=== PATIENT | female | born 2000 | race Caucasian/White ===

== ENCOUNTER 2023-07-24 11:15 | Outpatient (CLI) | payer OTHER, SELFPAY ==
[2023-07-24 13:02] LABS: HCG,Quantitative 6651 mIU/ml (0-5.42)
[2023-07-25 08:17] LABS: Progesterone 18.7 ng/mL (.)
== END 2023-07-24 23:59 ==
LOC: LAB 11:18
PROVIDERS: PCP Internal Medicine Adolescent Medicine; Visit Provider Obstetrics & Gynecology
DX: Z32.00 Encounter for pregnancy test, result unknown (principal)
CPT/HCPCS: 36415; 84144; 84702

== ENCOUNTER 2023-08-10 19:13 | Outpatient (CLI) | payer OTHER, SELFPAY ==
[2023-08-14 00:09] LABS: Neisseria gonorrhoeae, NAA Negative (Negative)
== END 2023-08-10 23:59 | disposition home or self-care (01) ==
LOC: LAB.DROPOF 19:14
PROVIDERS: PCP Obstetrics & Gynecology; Visit Provider Obstetrics & Gynecology
DX: O26.891 Other specified pregnancy related conditions, first trimester (principal); Z3A.01 Less than 8 weeks gestation of pregnancy
CPT/HCPCS: 87086; 87491; 87591

== ENCOUNTER 2023-08-28 16:22 | Outpatient (CLI) | payer OTHER, SELFPAY ==
[2023-08-28 16:53] LABS: Basophils # 0.1 K/mm3 (0-0.2); Basophils % 0.7 % (0.1-2.0); Eosinophils # 0.2 K/mm3 (0.0-0.4); Eosinophils % 1.6 % (0.1-12.0); Hematocrit 36.1 % (37.0-47.0); Hemoglobin 11.9 g/dL (12.2-16.2); Lymphocytes # 1.8 K/mm3 (0.7-4.5); Lymphocytes % 19.3 % (10-50); Mean Corpuscular HGB Conc 32.9 g/dL (31.8-35.4); Mean Corpuscular Hemoglobin 29.6 pg (27.0-31.2); Mean Platelet Volume 7.8 fl (7.4-10.4); Monocytes # 0.4 K/mm3 (0.1-1.0); Monocytes % 4.3 % (1.7-9.3); Neutrophils # 6.9 K/mm3 (1.8-7.8); Neutrophils % 74.1 % (37.0-80.0); Platelet Count 314 K/mm3 (142-424); Red Blood Count 4.01 M/mm3 (4.20-5.40); Red Cell Distribution Width 13.6 % (11.5-17.5); White Blood Count 9.3 K/mm3 (4.8-10.8)
[2023-08-30 13:43] LABS: Rapid Plasma Reagin Ab Titer Non Reactive titer (NonRea<1:1)
[2023-09-01 09:06] LABS: HIV Screen 4th Generation wRfx Non Reactive
[2023-09-01 09:07] LABS: Hepatitis B Surface Antigen Negative; Hepatitis C Antibody Non Reactive; Rubella Antibodies, IgG 2.03
== END 2023-08-28 23:59 | disposition home or self-care (01) ==
LOC: LAB 16:23
PROVIDERS: PCP Internal Medicine Adolescent Medicine; Visit Provider Obstetrics & Gynecology
DX: O26.891 Other specified pregnancy related conditions, first trimester (principal); Z3A.11 11 weeks gestation of pregnancy
CPT/HCPCS: 36415; 85025; 86593; 86703; 86762; 86850; 87340; 87380; G0432

== ENCOUNTER 2023-11-01 13:17 | Outpatient (CLI) | payer OTHER, SELFPAY ==
--- NOTE | 2023-11-01 13:17 | US_ITS ---
PROCEDURE: US OB /MATERNAL DETAIL CLINICAL INDICATION: US OB Complete-20 wk+ Anatomy Scan COMPARISON: No exams were available for comparison FINDINGS: Transabdominal sonographic images of the pelvis were obtained. From her established due date she is 19 weeks 3 days. Single viable intrauterine gestation. Cephalic position. Placenta: Anteriorplacenta grade 1. There is an average amount of fluid. The cervix appears satisfactory. Closed and measuring 4.9 cm in length. Complete survey performed and was unremarkable on the submitted images as in PACS. No discrete anomalies identified on survey imaging by technologist. Active fetus. Three-vessel cord with satisfactory umbilical cord insertion. 4- chamber heart noted. Situs, aortic arch, LVOT, RVOT, three-vessel view appear normal. Survey of brain & ventricles Unremarkable. Cerebellum, thalamus, choroid plexus, cisterna magna appear normal. Face and neck survey unremarkable. Profile, nasion, lips and nose appeared normal. Diaphragm and chest views unremarkable. Abdomen: Both kidneys noted and unremarkable. Stomach and bladder noted and satisfactory. Spine: Survey of the spine satisfactory with no anomalies identified nor imaged. Cervical, thoracic, lower spine appear normal. The views were incomplete due to position. Both arms and legs noted. Amniotic Fluid: Adequate. MVP 4.36 cm. Measurements: Average ultrasound age 19weeks 3days. Estimated due date by ultrasound age 1103/24/2024. Estimated weight 292g BPD = 19weeks 1day HC = 19weeks 3days AC = 19weeks 6days FL = 19weeks 1day Growth Percentile= 45 Heart Rate = 146bpm Cerebellum = 19weeks 4days Humerus = 19weeks 3days HC/AC is 1.16 FL/BPD is 0.68 FL/AC is 0.2 IMPRESSION: 1. Viable fetus in the cephalic presentation with an anterior placenta grade 1. 2. The fluid is within normal limits. 3. Anatomical scan appears normal. 4. Spinal views were incomplete due to position and would suggest repeat views in 2-4 weeks. 5. biometry is consistent with a dates. Dictated by: Kehinde Powell MD 11/01/2023 14:14 Kehinde Powell MD in [place] 11/01/2023 14:14
== END 2023-11-01 23:59 | disposition home or self-care (01) ==
LOC: RAD 13:17
PROVIDERS: PCP Internal Medicine Adolescent Medicine; Visit Provider Obstetrics & Gynecology
DX: Z36.3 Encounter for antenatal screening for malformations (principal); Z14.1 Cystic fibrosis carrier; Z3A.19 19 weeks gestation of pregnancy
CPT/HCPCS: 76811

== ENCOUNTER 2023-11-15 15:45 | Outpatient (CLI) | payer OTHER, SELFPAY ==
--- NOTE | 2023-11-15 15:45 | US_ITS ---
PROCEDURE: US OB FOLLOW UP CLINICAL INDICATION: follow up anatomy scan to focus on the spine COMPARISON: US US OB /MATERNAL DETAIL from 11/01/2023 FINDINGS: Transabdominal sonographic images of the pelvis were obtained. The following parameters are obtained: From her established due date she is 21weeks 3days Viable fetus in the cephalic presentation with a right lateral placenta grade 1. The cervix measures 3.5 cm heart rate: 149bpm bpm. BPD: 22weeks 2days HC: 21weeks 6days AC: 22weeks 1day FL: 20weeks 6days HC/AC: 1.14 FL/BPD: 0.64 FL/AC: 0.2 Growth percentile: 51 Amniotic fluid: Appears normal. No obvious anomalies evident. Stomach, bladder, three-vessel cord, four chamber heart appear normal. spine: Cervical, thoracic and lower spine appear normal today. IMPRESSION: 1. Viable fetus in the cephalic presentation with a right lateral placenta grade 1. 2. The fluid appears normal in volume. 3. Limited anatomical scan appears normal. 4. Detailed scan of the spine today is normal. 5. biometry is consistent with the dates. Dictated by: Kehinde Powell MD 11/16/2023 08:59 Kehinde Powell MD in [place] 11/16/2023 08:59
== END 2023-11-15 23:59 | disposition home or self-care (01) ==
LOC: RAD 15:45
PROVIDERS: PCP Internal Medicine Adolescent Medicine; Visit Provider Obstetrics & Gynecology
DX: Z36.2 Encounter for other antenatal screening follow-up (principal); Z3A.21 21 weeks gestation of pregnancy
CPT/HCPCS: 76816

== ENCOUNTER 2023-12-27 13:44 | Outpatient (CLI) | payer OTHER, SELFPAY ==
[2023-12-27 14:09] LABS: Basophils # 0.1 K/mm3 (0-0.2); Basophils % 0.5 % (0.1-2.0); Eosinophils # 0.1 K/mm3 (0.0-0.4); Eosinophils % 0.5 % (0.1-12.0); Hematocrit 32.8 % (37.0-47.0); Hemoglobin 10.6 g/dL (12.2-16.2); Lymphocytes # 1.8 K/mm3 (0.7-4.5); Lymphocytes % 13.9 % (10-50); Mean Corpuscular HGB Conc 32.3 g/dL (31.8-35.4); Mean Corpuscular Volume 89.8 fl (81-99); Mean Platelet Volume 8.1 fl (7.4-10.4); Monocytes # 0.6 K/mm3 (0.1-1.0); Monocytes % 4.5 % (1.7-9.3); Neutrophils # 10.6 K/mm3 (1.8-7.8); Neutrophils % 80.5 % (37.0-80.0); Platelet Count 305 K/mm3 (142-424); Red Blood Count 3.65 M/mm3 (4.20-5.40); Red Cell Distribution Width 13.5 % (11.5-17.5); White Blood Count 13.2 K/mm3 (4.8-10.8)
[2023-12-27 14:19] LABS: Glucose,Fasting 82 mg/dl (74-100)
[2023-12-27 16:04] LABS: Glucose 1 Hour 122 mg/dL (74-100)
[2023-12-29 10:14] LABS: Rapid Plasma Reagin Ab Titer Non Reactive titer (NonRea<1:1)
== END 2023-12-27 23:59 | disposition home or self-care (01) ==
LOC: LAB 13:44
PROVIDERS: PCP Internal Medicine Adolescent Medicine; Visit Provider Obstetrics & Gynecology
DX: Z34.90 Encounter for supervision of normal pregnancy, unspecified, unspecified trimester (principal)
CPT/HCPCS: 36415; 82951; 85025; 86593

== ENCOUNTER 2024-03-06 11:00 | Outpatient (CLI) | payer OTHER, SELFPAY | END 2024-03-06 23:59 | disposition home or self-care (01) | LOC: LAB.DROPOF 03-07 10:38 | PROVIDERS: PCP Obstetrics & Gynecology; Visit Provider Obstetrics & Gynecology | DX: Z34.90 Encounter for supervision of normal pregnancy, unspecified, unspecified trimester (principal) | CPT/HCPCS: 86403 ==

== ENCOUNTER 2024-03-29 07:57 | Outpatient (CLI) | payer OTHER, SELFPAY ==
--- NOTE | 2024-03-29 08:00 | US_ITS ---
PROCEDURE: US OB BPP W/FET-MAT S/D CLINICAL INDICATION: past due date COMPARISON: US US OB /MATERNAL DETAIL from 11/01/2023 US US OB FOLLOW UP from 11/15/2023 FINDINGS: Transabdominal sonographic images of the uterus were obtained. From her established due date she is 40weeks 5days. The following parameters are obtained: Viable Fetus in the cephalic presentation with and anterior placenta grade 2. Average ultrasound age is 37weeks 2days Estimated weight 3,211g, 7 a B1 oz Cervix measures 4.34 cm. Measurements: heart Rate = 134bpm BPD = 36weeks 5days HC = 37weeks 3days AC = 38weeks 0 days FL = 37weeks 6 HC/AC is 0.97 FL/BPD is 0.8 FL/AC is 0.21 Amniotic fluid index: 4.81cm, MVP 3.59 there is a pocket of fluid 2.18 cm x 2.98 cm. Qualitative AFV:2 Breathing movements: 2 Gross Body Movements: 2 Tone: 2 Biophysical profile score: 8 Doppler evaluation of the umbilical artery: SD ratio: 3.44-4.89 Resistive index: 0.74 No obvious anomalies evident.Kidneys, profile, three-vessel cord appear normal. IMPRESSION: 1. Viable fetus in the cephalic presentation with an anterior placenta grade 2. 2. Fluid is subjectively low with an amniotic fluid index of 4.81 cm. There is a pocket of fluid 2.18 cm x 2.98 cm. There was another pocket that was 3.59 cm deep. 3. Biophysical profile was 8/8 with good breathing movement and movement seen. 4. SD ratio is normal. 5. There has been good interval growth but the abdominal circumference is almost 3 weeks behind. 6. Limited anatomical scan appears normal. 7. Dr. Camara is aware of the findings. Dictated by: Kehinde Powell MD 03/29/2024 17:17 Kehinde Powell MD in [place] 03/29/2024 17:17
== END 2024-03-29 23:59 | disposition home or self-care (01) ==
LOC: RAD 07:58
PROVIDERS: PCP Internal Medicine Adolescent Medicine; Visit Provider Obstetrics & Gynecology
DX: O80 Encounter for full-term uncomplicated delivery (principal)
CPT/HCPCS: 76811; 76819; 76820

== ENCOUNTER 2024-03-29 08:55 | Outpatient (CLI) | payer OTHER, SELFPAY ==
[2024-03-29 09:03] VITALS: BMI 32.5
[2024-03-29 09:20] VITALS: BP 117/74; PULSE 113; RESP 18; TEMP 36.7; O2SAT 99; BMI 32.5
[2024-03-29 09:21] LABS: Microscopic, Urine URINE MICROSCOPIC (MICROSCOPIC)
[2024-03-29 09:26] LABS: Appearance,Urine SL CLOUDY (Clear); Bilirubin,Urine Negative (Negative); Blood, Urine Negative (Negative); Color,Urine YELLOW (Yellow); Glucose,Urine (UA) Negative (Negative); Ketones,Urine Negative (Negative); Leukocyte Esterase,Urine 1+ (Negative); Nitrate,Urine Negative (Negative); Protein,Urine Negative (Negative); Specific Gravity, Urine >= 1.030 (1.005-1.030)
[2024-03-29 09:39] LABS: Benzodiazepines Screen,Urine Negative ng/ml (<200)
[2024-03-29 09:40] LABS: Amphetamine/Metha Screen,Urine Negative ng/ml (<1000)
[2024-03-29 09:41] LABS: Bacteria,Urine 1+ /lpf; Barbiturates Screen,Urine Negative ng/ml (<200); Cannabinoid Screen,Urine Negative ng/ml (<50)
[2024-03-29 09:42] LABS: Cocaine Screen,Urine Negative ng/ml (<300)
[2024-03-29 09:43] LABS: Methadone Screen,Urine Negative ng/ml (<300); Opiate Screen,Urine Negative ng/ml (<300)
[2024-03-29 09:44] LABS: Phencyclidine Screen,Urine Negative ng/ml (<25)
== END 2024-03-29 10:35 | disposition home or self-care (01) ==
LOC: OBOUT 08:57 → OB 08:59
PROVIDERS: PCP Internal Medicine Adolescent Medicine; Referring Provider Internal Medicine Adolescent Medicine; Visit Provider Obstetrics & Gynecology
DX: O80 Encounter for full-term uncomplicated delivery (principal)
CPT/HCPCS: 80307; 81001; 87086; G0463

== ENCOUNTER 2024-03-29 13:26 | Inpatient (IN) | payer OTHER, SELFPAY ==
--- OUTSIDE RECORDS SUMMARY | 2024-03-29 13:29 | XMS_ITS | Encounter Summary ---
Author Organization [facility] Address [address] [place] [address] Care Team Providers Care Net Finisher Name Role Phone Provider, No Known Primary Care Provider Unavail able Reason for Visit * Reason Comments Sports Physical Encounter Details Date Type Department Care Team (Late st Contact Info) Description 11/25/2017 1:45 PM EDT Office Visit [address] [place] [address] Routine sports physical exam (Primary Dx) Social History Tobacco Use Types Packs/Day Years Used Date Smoking Tobacco: Never Assessed Comments No Sex and Gender Information Value Date Recorded Sex Assigned at Not on file Legal Sex Female 1:39 PM EDT Gender Identity Not on file Sexual Orientation Not on file documented as of this encounter Last Filed Vital Signs Vital Sign Reading Time Taken Comments Blood Pressure 98/60 11/25/2017 1:47 PM EDT Pulse 61 11/25/2017 1:47 PM EDT Temperature - - Respiratory Rate 12 11/25/2017 1:47 PM EDT Oxygen Saturation 98% 11/25/2017 1:47 PM EDT Inhaled Oxygen Concentration - - Weight 59 kg (130 lb) 11/25/2017 1:47 PM EDT Height 157.5 cm (5' 2 ) 11/25/2017 1:47 PM EDT Body Mass Index 23.78 11/25/2017 1:47 PM EDT Body Mass Index Percentile 81.10% 11/25/2017 1:4 7 PM EDT Growth Chart: CDC (Girls, 2- 20 Years) documented in this encounter Progress Notes * Kyleigh Cadet APRN - 11/25/2017 1:45 PM EDT Mother brings in 15 yo daughter for sports physical for participation in [employer]. Denies any Family history of sudden cardiac arrest, cardiomegaly. Feels well today. See scanned sports participation form Kyleigh Cadet APRN documented in this encounter Plan of Treatment Not on file documented as of this encounter Visit Diagnoses Diagnosis Routine sports physical exam- Primary Other general medical examination for administrative purposes documented in this encounter Care Teams Net Finisher Relationship Specialty Start Date End Date Provider, No Known [facility] [place] [address] PCP - General 11/25/17 documented as of this encounter
--- OUTSIDE RECORDS SUMMARY | 2024-03-29 13:29 | XMS_ITS | Clinical Summary ---
Author Organization [facility] Address [address] [place] [address] Care Team Providers Care Concrete Carpenter Name Role Phone Provider, No Known Primary Care Provider Unavail able Allergies No known active allergies Medications No known medications Social History Tobacco Use Types Packs/Day Years Used Date Smoking Tobacco: Never Assessed Abuse Screen Answer Date Recorded Unsafe at Home or Work/School Not on file Feels Threatened by Someone? Not on file 03/2023 Does Anyone Keep You from Co ntacting Others or Doint Things Outside the Home? Not on file 02/09/2023 Physical Sign of Abuse Present Not on file 1 Housing Stability Answer Date Recorded Current Living Arrangements Not on file 01/29 Potentially Unsafe Housing Conditions Not on gladys e 02/09/2023 Family and Community Support Answer Jayme e Recorded Help with Day-to-Day Activities Not on file 02/09/2023 Lonely or Isolated Not on file 02/09/2023 Employment Answer Date Recorded Do you want help finding or keeping work or a zoey b? Not on file 02/09/2023 Disabilities Answer Date Recorded Concentrating, Remembering, or Making Decisions Difficulty Not on file 02/09/2023 Doing Errands Independently Difficulty Not on fi le 02/09/2023 Education Answer Date Recorded Help with school or training? Not on file Preferred Language Not on file 02/09/2023 Comments No Sex and Gender Information Value Date Recorded Sex Assigned at Not on file Legal Sex Female 1:39 PM EDT Gender Identity Not on file Sexual Orientation Not on file Last Filed Vital Signs Vital Sign Reading [...] Mass Index 23.78 11/25/2017 1:47 PM EDT Plan of Treatment Health Maintenance Due Date Last Done Comments Annual Gynecologic Pelvic an d Breast Exam 2002 HPV VACCINES (1 - 3-dose series) 2017 ANNUAL PHYSICAL 11/25/2017 HEPATITIS C SCREENING 11/25/2017 TDAP/TD VACCINES (1 - Tdap) 2021 INFLUENZA VACCINE 11/30/2023 COVID-19 Vaccine ( - 2023-2 5 season) 2023 MENINGOCOCCAL VACCINE Aged Out No shahzad tanya eligible based on patient's age to complete this topic Pneumococcal Vaccine 0-64 Aged Out No longer eligible based on patient's age to complete this topic Care Teams Concrete Carpenter Relationship Specialty Start Date End Date Provider, No Known [facility] [place] [address] PCP - General 11/25/17
[2024-03-29 13:42] VITALS: BMI 32.5
[2024-03-29 14:10] LABS: Basophils % 0.2 % (0.1-2.0); Eosinophils % 0.5 % (0.1-12.0); Hematocrit 27.1 % (37.0-47.0); Hemoglobin 8.9 g/dL (12.2-16.2); Lymphocytes # 1.4 K/mm3 (0.7-4.5); Lymphocytes % 14.7 % (10-50); Mean Corpuscular HGB Conc 32.7 g/dL (31.8-35.4); Mean Corpuscular Hemoglobin 23.8 pg (27.0-31.2); Mean Corpuscular Volume 72.8 fl (81-99); Mean Platelet Volume 8.2 fl (7.4-10.4); Monocytes # 0.5 K/mm3 (0.1-1.0); Monocytes % 4.9 % (1.7-9.3); Neutrophils # 7.5 K/mm3 (1.8-7.8); Neutrophils % 79.7 % (37.0-80.0); Platelet Count 229 K/mm3 (142-424); Red Blood Count 3.72 M/mm3 (4.20-5.40); Red Cell Distribution Width 16.8 % (11.5-17.5); White Blood Count 9.4 K/mm3 (4.8-10.8)
[2024-03-29 14:24] VITALS: BP 110/67; PULSE 88; RESP 18; TEMP 36.7; O2SAT 98; BMI 32.7
[2024-03-29] MEDS: miSOPROStol 100MCG TABLET 50 MCG PO ×2 (14:42→21:21)
[2024-03-29 14:50] LABS: RPR W/RFX Titers Nonreactive (Nonreactive)
[2024-03-29 19:52] VITALS: BP 119/80; PULSE 72; RESP 16; TEMP 37; O2SAT 99
[2024-03-30] MEDS: LACTATED RINGERS 1000ML 1,000 ML 250 ML IV (00:22)
[2024-03-30 04:53] VITALS: BP 98/50; PULSE 67; RESP 15; TEMP 36.9; O2SAT 99
[2024-03-30] MEDS: miSOPROStol 100MCG TABLET 50 MCG PO (05:01)
[2024-03-30] MEDS: OXYTOCIN/RINGERS LACTATE 30 UNITS/500 ML BAG IV (10:30)
[2024-03-30] MEDS: DEXTROSE 5%-LACTATED RINGERS 1,000 ML 125 ML IV (10:57)
--- NOTE | 2024-03-30 13:26 | P.HP_ITS ---
History of Present Illness *Admission Date: 03/29/24 *Reason for visit:: induciton *History of present illness: Myra Broussard is a 24-year-old at 40 weeks and 6 days gestation who presented to labor and delivery for an induciton of labor. She had a BPP and growth on Monday at 40w5d which showed AC lagged by 3 weeks and low GILLES, not qualifing for oligo. Interactive discussion with pt revealed the patient was comfortable with IOL last night and she was brought in for cytotec cervical ripening. 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 On presentation patient endorsed good movement and denies any leakage of fluid or vaginal bleeding. A+, antibody negative, rubella immune, hepatitis B negative, hepatitis C negative, RPR negative, HIV negative 1 hour GTT: 122 GBS negative PFSH PFS Disclaimer: The information contained in this section may have been updated after the patient was seen, as this information can be updated by other users. Medical History (Updated 03/30/24 @ 13:32 by Brenda Camara DO) Post-dates Cystic fibrosis gene carrier Anxiety Surgical History No significant past surgical history Family History Mother Hypertension Social History (Updated 03/26/24 @ 10:41 by Erica Huitron DO) Smoking Status: Former smoker alcohol intake: never substance use type: denies use current occupational status: employed Travel in the last 8 weeks: None Other Medical History Have you received the Flu Vaccine for this season: No Have you received the Pneumonia Vaccine: No Review of Systems Review of Systems Review of systems (narrative): Review of Systems Constitutional: Denies fever, chills, and sweats Eyes: Denies vision change/ pain Respiratory: Denies cough and shortness of breath Cardiovascular: Denies chest pain and lightheadedness Gastrointestinal: Denies abdominal pain with contractions. Denies nausea, vomiting. Genitourinary: Denies dysuria and incontinence Musculoskeletal: Denies shoulder pain and back pain Neurological: Denies change in speech or headaches Meds Home Medications and Allergies Home Medications ?Medication ?Instructions ?Recorded ?Confirmed ?Type vits no.126-ferrous fum 1 tab PO DAILY 08/10/23 03/29/24 History 28 mg iron-folic acid 800 mcg tablet (Classic ) ferrous gluconate 324 mg (38 mg 324 mg PO DAILY #30 tabs 12/27/23 03/29/24 Rx iron) tablet New Prescriptions to Start Prescriptions: Allergies Allergy/AdvReac Type Severity Reaction Status Date / Time No Known Allergies Allergy Verified 03/26/24 08:37 Exam Data for Last 24 hours Vital signs and Labs for Last 24 Hours: Temp Pulse Resp BP Pulse Ox O2 Del Method 98.4 F 67 15 98/50 L 99 Room Air 03/30/24 04:53 03/30/24 04:53 03/30/24 04:53 03/30/24 04:53 03/30/24 04:53 03/30/24 04:53 Laboratory Results - last 24 hr 03/29/24 14:00: WBC 9.4, RBC 3.72 L, Hgb 8.9 L, Hct 27.1 L, MCV 72.8 L, MCH 23.8 L, MCHC 32.7, RDW 16.8, Plt Count 229, MPV 8.2, Neut % (Auto) 79.7, Lymph % (Auto) 14.7, [place] % (Auto) 4.9, Eos % (Auto) 0.5, Baso % (Auto) 0.2, Neut # (Auto) 7.5, Lymph # (Auto) 1.4, [place] # (Auto) 0.5, Eos # (Auto) 0.0, Baso # (Auto) 0.0, Blood Type A Positive, Antibody Screen Negative, Crossmatch (AHG) See Detail I & O for Last 24 hours: Intake & Output 03/27/24 03/28/24 03/29/24 03/30/24 23:59 23:59 23:59 23:59 Weight 177 lb 15.984 oz Narrative: General: patient is alert oriented in no acute distress and responds appropriately to questions. HEENT: NCAT, EOMI, moist mucous membranes, neck supple with full ROM Cardiovascular: RRR +S1/S2, no murmurs or rubs Pulmonary: Clear to auscultation bilaterally, nonlabored breathing, symmetric chest rise Abdominal: Gravid abdomen appropriate for gestation. No guarding, rebound, or tenderness noted. Extremities: trace edema, no tenderness or cyanosis noted Skin: Normal turgor, intact, warm. Negative for erythema, pallor, petechia, or lesions Neurologic: Negative for sensory or motor deficit Psychiatric: Normal affect, normal thought process, good judgment and insight, no depression or anxious mood appreciated. *Routine HEENT Exam Head: Present normocephalic and atraumatic Eye: Present EOMI, PERRL and normal accommodation; Absent conjunctival icterus, scleral injection, nystagmus or exophthalmos ENT: Present mucous membranes moist *Routine Respiratory Exam Respiratory: Present CTA bilaterally, normal respiratory effort, able to speak in complete sentences and symmetric chest movement; Absent accessory muscle use, decreased breath sounds, rales, respiratory distress, wheezes, distant breath sounds or diminished air movement *Routine Cardiovascular Exam Cardiovascular: Present RRR, Normal S1 and Normal S2; Absent murmur or gallop *Routine Abdominal Exam Abdominal: Present soft and normoactive bowel sounds; Absent tenderness, distended, rebound or guarding *Routine Rectal Exam Rectal:: deferred *Routine Genitalia Exam Genitalia:: normal female Assessment and Plan *Assessment and plan (1) Post-dates : Status: Acute Category: Medical Code(s): O48.0 - Post-term (2) Cystic fibrosis gene carrier: Status: Acute Category: Medical Code(s): Z14.1 - Cystic fibrosis carrier (3) Encounter for induction of labor: Status: Acute Category: Medical Code(s): Z34.90 - Encounter for supervision of normal , unspecified, unspecified trimester (4) Anemia: Status: Acute Qualifiers: Anemia type: iron deficiency Iron deficiency anemia type: other iron deficiency Qualified Code(s): D50.8 - Other iron deficiency anemias Category: Medical Code(s): D64.9 - Anemia, unspecified Plan - Monitor vitals - Admit to L&D for induction of labor - Plan for induction with 50mcg of PO cytotec [id number] per protocol - External FHR and TOCO monitor - Exam on admission: /-3 - GBS neg/ Blood type: A+ - Plan for epidural anesthesia - Anticipate vaginal delivery of male infant: Omar Larsen #Microcytic Anemia - Hemoglobin: 8.9, Plt: 229. Type and cross x 2 units for prophylaxis Patient recieved 3 doses of cytotec and pitocin was started. She had AROM, clear fluid, tolerated well. Cat 1 strip following AROM. Doing well. Desires Epidural
[2024-03-30] MEDS: BUTORPHANOL TARTRATE 1 MG/ML VIAL IV (14:04)
[2024-03-30] MEDS: ePHEDrine SULF 50MG/ML VIAL 10 MG IV ×2 (17:32→18:11)
--- NOTE | 2024-03-30 17:36 | P.PNANES_ITS ---
[facility] Disclaimer: The information contained in this section may have been updated after the patient was seen, as this information can be updated by other users. Medical History (Updated 03/30/24 @ 13:32 by Brenda Camara DO) Post-dates Cystic fibrosis gene carrier Anxiety Surgical History No significant past surgical history Family History Mother Hypertension Social History (Updated 03/26/24 @ 10:41 by Erica Huitron DO) Smoking Status: Former smoker alcohol intake: never substance use type: denies use current occupational status: employed Travel in the last 8 weeks: None [facility] Anesthesia Checklist Patient Identification Patient Identification: Verbal (Name & ) Structural Data Admitted From: Inpatient Planned Operative Procedure/s: labor epidural Consent for Planned Operative Procedure(s) Verified: Yes Airway Assessment Mallampati Score:: Class II C-Spine Mobility Assessed: Yes TMJ Mobility Assessed: Yes Dentition: Good Dentition Neurological Assessment Level of Consciousness: Awake, Alert and Appropriate Anesthesia Plan Anesthesia Risk discussed: Yes Anesthesia Plan: Verified ASA Class: II Anesthesia Type: Epidural
[2024-03-30 19:54] VITALS: BP 108/72; PULSE 102; RESP 18; TEMP 36.6; O2SAT 100
[2024-03-31] MEDS: ACETAMINOPHEN 325MG TAB 650 MG PO (01:35)
[2024-03-31] MEDS: DEXTROSE 5%-LACTATED RINGERS 1,000 ML 125 ML IV (03:08)
--- NOTE | 2024-03-31 04:10 | EXP.LABOR.NO ---
Labor Note Subjective: Date: 03/31/24 Time: 04:10 regular contraction Objective: NST:: Reactive Contractions:: every 2-3 minutes Cervical Dilation:: 9-10 Effacement:: 100% Station: +1 Membranes: artificially ruptured Fetus: Monitoring?: No monitoring type:: External Assessment: Labor progressing?: Yes Plan: Anesthesia for epidural?: Yes Plan for ?: No Continue to monitor?: Yes Start pushing?: Yes
--- NOTE | 2024-03-31 05:49 | EXP.DN ---
Delivery Note Delivery Date:: 03/31/24 Delivery Time:: 05:26 Anesthesia Type: Epidural Was labor medically induced?: Yes Induction method: per misoprostol protocol Gestational age (weeks): 41 Infant delivered prior to 39 weeks?: No Gender: Male at 1 minute: 8 at 5 minutes: 9 LAC or MLE?: LAC Delivery Procedure:: Preoperative diagnosis: 1. at 41 completed this weeks gestation, vertex 2. Rh positive 3. Cystic Fibrosis carrier 4. GBS negative Postoperative diagnosis: 1. at 41 completed this weeks gestation, vertex 2. Rh positive 3. Cystic Fibrosis carrier 4. GBS negative EBL: 250mL Specimen: 1. Cord blood 2. Placenta Findings: 1. Liveborn viable male : Omar Larsen. Apgars 8/9 at 1 and 5 minutes respectively. Weight pending at time of dictation 2. 2nd degree midline perineal laceration Complications: None Procedure: Nonoperative spontaneous vaginal delivery Maria Del Carmen Broussard is a 24-year-old who presented on Monday for a growth and BPP. Abdominal circumference was noted to be 3 behind gestational age. Was also noted that she had subjectively low fluid volume. On presentation she reported that she felt decreased movement but later clarified that she was still feeling the with just not as vigorously. Shared decision-making was used to proceed with induction. She received 3 doses of Cytotec followed by Pitocin, per protocol. She had artificial rupture membranes revealing clear fluid. She received an epidural for anesthesia. Maria Del Carmen continued to progress through labor normally and she reached complete dilation. Just prior to this her temperature was noted to be 100.3, she was given one dose of 650mg of PO acetaminophen. Of note her first temp of the day was 99.3, so this may be her baseline temperature. She began to push for a total of approximately 2 hours. Infant was in the MEKHI position and with effective maternal pushing there was a nonoperative spontaneous vaginal delivery at 1044. There was no nuchal cord. The anterior left shoulder delivered, followed by the posterior shoulder without dystocia. The body and lower extremities delivered without difficulty. The infant was bulb suctioned and was crying immediately following delivery. Of note the umbilical cord was very short and unable to be placed on maternal chest until cut. The infant was placed on the maternal abdomen and greater than one minute was appreciated for delayed cord clamping. The umbilical cord was doubly clamped and cut. Cord blood was collected and sent for routine testing. The placenta delivered with cord traction and suprapubic contertraction. Pitocin was started. The uterus was firm and bleeding was minimal. The perineum, vaginal andersen, cervix, and paraurethral area were inspected thoroughly. There was a second-degree midline perineal laceration. 1% Lidocaine, 10ml, was injected during the repair due to patient discomfort. The laceration was repaired in the usual fashion using 2-0 Vicryl suture. Rectal exam revealed it was free of suture or defects. The laceration was hemostatic. The cervix and vaginal andersen were inspected and noted to be hemostatic. This concluded the delivery. The patient was counseled regarding the events of the delivery and repair. The patient tolerated the delivery well. All counts were correct by nursing. Mother and infant were bonding and doing well upon my leaving the delivery room. Laceration:: vaginal Placental Delivery Description: Spontaneous
[2024-03-31 07:30] VITALS: BP 101/56; PULSE 64; RESP 18; TEMP 37; O2SAT 100
[2024-03-31] MEDS: OXYTOCIN/RINGERS LACTATE 30 UNITS/500 ML BAG 40 UNITS IV (08:16)
[2024-03-31] MEDS: WITCH HAZEL 40 PADS/BOX 1 EACH TP (09:06)
[2024-03-31] MEDS: BENZOCAINE-MENTHOL SPRAY 56GM CAN TP (09:06)
[2024-03-31] MEDS: FERROUS SULFATE 325MG TABLET 325 MG PO (09:07)
[2024-03-31 16:30] VITALS: BP 134/72; PULSE 125; RESP 18; TEMP 36.8; O2SAT 100
[2024-03-31] MEDS: LANOLIN CREAM 40GM TP (16:52)
[2024-03-31 20:26] VITALS: BP 124/77; PULSE 107; RESP 20; TEMP 37.2; O2SAT 99
[2024-04-01] MEDS: WITCH HAZEL 40 PADS/BOX 1 EACH TP (01:13)
[2024-04-01] MEDS: BENZOCAINE-MENTHOL SPRAY 56GM CAN TP (01:13)
[2024-04-01 03:51] VITALS: BP 129/64; PULSE 88; RESP 18; TEMP 36.8; O2SAT 98
[2024-04-01 07:18] LABS: Basophils # 0.1 K/mm3 (0-0.2); Basophils % 0.4 % (0.1-2.0); Eosinophils % 0.2 % (0.1-12.0); Hematocrit 24.9 % (37.0-47.0); Hemoglobin 7.9 g/dL (12.2-16.2); Lymphocytes # 2.7 K/mm3 (0.7-4.5); Mean Corpuscular HGB Conc 31.8 g/dL (31.8-35.4); Mean Corpuscular Hemoglobin 23.2 pg (27.0-31.2); Mean Corpuscular Volume 72.9 fl (81-99); Mean Platelet Volume 9.6 fl (7.4-10.4); Monocytes # 1.1 K/mm3 (0.1-1.0); Monocytes % 6.9 % (1.7-9.3); Neutrophils # 12.1 K/mm3 (1.8-7.8); Neutrophils % 75.5 % (37.0-80.0); Platelet Count 225 K/mm3 (142-424); Red Blood Count 3.41 M/mm3 (4.20-5.40); Red Cell Distribution Width 17.1 % (11.5-17.5)
[2024-04-01 07:43] LABS: MANUAL DIFFERENTIAL MANUAL DIFFERENTIAL (MANUAL DIFF)
[2024-04-01 10:17] LABS: Hypochromasia 1+; Lymphocytes % 27 % (10-50); Neutrophils % 73 % (42-76); Platelet Estimate Normal; Total Cells Counted 100
[2024-04-01] MEDS: FERROUS SULFATE 325MG TABLET 325 MG PO (11:54)
--- NOTE | 2024-04-01 12:16 | EXP.DC.SUM ---
General Admission date:: 03/29/24 Discharge date: 04/01/24 HPI HPI HPI: PPD # 1 s/p Feeling well. Pain controlled. Formula feeding. Lochia is appropriate. Voiding without difficulty and passing flatus. Tolerating regular diet. Denies fever/chills, chest pain and shortness of breath. No headaches, vision changes, lightheadedness/dizziness. No lower extremity swelling. Ambulating well ad enrike. Hospital Course Hospital Course Hospital Course: Ms Myra Broussard is a 24-year-old at 40 weeks and 6 days gestation who presented to labor and delivery for an induction of labor. She had a BPP and growth on Monday at 40w5d which showed AC lagged by 3 weeks and low GILLES, not qualifing for oligo. Interactive discussion with patient revealed the patient was comfortable with induction of labor. She underwent induction of labor with Cytotec cervical ripening. 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 On presentation patient endorsed good movement and denies any leakage of fluid or vaginal bleeding. GBS negative. She had a normal spontaneous vaginal delivery on 03/31/24 at 0526. She delivered a live male baby, Omar Larsen, weighing 7 lb 4 oz. APGARs 8 (1 min), 9 (5 min). EBL 250 mL. She did well . Pain controlled. Formula feeding. Light lochia. Voiding without difficulty and passing flatus. Tolerating regular diet. Denies fever/chills, chest pain and shortness of breath. No headaches, dizziness/lightheadedness or vision changes. Vital signs stable, afebrile. Heart regular rate and rhythm. Lungs clear to auscultation. Abdomen soft, nontender. No lower extremity swelling. Ambulating well ad enrike. Normal hospital course. anemia. PPD # 1 Hgb 7.9 (8.9 on admission). She received 200 mg IV Venofer on postop day # 1. She was discharged to home on POD # 2 with instructions to follow-up in the office in 2 weeks or sooner if needed. Exam Data for Last 24 hours Vital signs and Labs for Last 24 Hours: Temp Pulse Resp BP Pulse Ox O2 Del Method 98.3 F 88 18 129/64 98 Room Air 04/01/24 03:51 04/01/24 03:51 04/01/24 03:51 04/01/24 03:51 04/01/24 03:51 04/01/24 03:51 Laboratory Results - last 24 hr 04/01/24 06:46: WBC 16.0 H D, RBC 3.41 L, Hgb 7.9 L, Hct 24.9 L, MCV 72.9 L, MCH 23.2 L, MCHC 31.8, RDW 17.1, Plt Count 225, MPV 9.6, Neut % (Auto) 75.5, Lymph % (Auto) 17.0, [place] % (Auto) 6.9, Eos % (Auto) 0.2, Baso % (Auto) 0.4, Neut # (Auto) 12.1 H, Lymph # (Auto) 2.7, [place] # (Auto) 1.1 H, Eos # (Auto) 0.0, Baso # (Auto) 0.1, Total Counted 100, Neutrophils % (Manual) 73, Lymphocytes % (Manual) 27, Platelet Estimate Normal, Hypochromasia 1+ I & O for Last 24 hours: Intake & Output 03/29/24 03/30/24 03/31/24 04/01/24 23:59 23:59 23:59 23:59 Output Total 600 / 600 Balance -600 / -600 Weight 177 lb 15.984 oz Constitutional Constitutional: no acute distress and cooperative *Routine HEENT Exam Head: Present normocephalic and atraumatic Eye: Absent conjunctivae pink ENT: Present mucous membranes moist *Routine Neck Exam Neck: Present full ROM *Routine Respiratory Exam Respiratory: Present CTA bilaterally and normal respiratory effort *Routine Cardiovascular Exam Cardiovascular: Present RRR *Routine Abdominal Exam Abdominal: Present soft; Absent tenderness Comments: Uterine fundus firm and below umbilicus *Routine Rectal Exam Patient deferred: visual exam *Routine Exam Patient deferred: external exam *Routine Extremities Exam Extremities: Present full ROM; Absent edema or calf tenderness *Routine Neurological Exam Neurological: Present alert, moving all extremities and normal speech Routine Psychiatric Exam Psychiatric: Present normal affect and cooperative Results Data Completed and Pending Labs on day of discharge: Labs from last 24 hours 04/01/24 06:46 WBC 16.0 H D RBC 3.41 L Hgb 7.9 L Hct 24.9 L MCV 72.9 L MCH 23.2 L MCHC 31.8 RDW 17.1 Plt Count 225 MPV 9.6 Neut % (Auto) 75.5 Lymph % (Auto) 17.0 [place] % (Auto) 6.9 Eos % (Auto) 0.2 Baso % (Auto) 0.4 Neut # (Auto) 12.1 H Lymph # (Auto) 2.7 [place] # (Auto) 1.1 H Eos # (Auto) 0.0 Baso # (Auto) 0.1 Total Counted 100 Neutrophils % (Manual) 73 Lymphocytes % (Manual) 27 Platelet Estimate Normal Hypochromasia 1+ DS: Diagnosis Discharge Diagnosis (1) Post-dates : Status: Acute Code(s): O48.0 - Post-term Qualifiers: Post-term type: 40-42 weeks gestation Qualified Code(s): O48.0 - Post-term (2) Cystic fibrosis gene carrier: Status: Acute Code(s): Z14.1 - Cystic fibrosis carrier (3) Encounter for induction of labor: Status: Acute Code(s): Z34.90 - Encounter for supervision of normal , unspecified, unspecified trimester (4) Anemia: Status: Acute Code(s): D64.9 - Anemia, unspecified Qualifiers: Anemia type: iron deficiency Iron deficiency anemia type: other iron deficiency Qualified Code(s): D50.8 - Other iron deficiency anemias Meds Home Medications and Allergies Home Medications ?Medication ?Instructions ?Recorded ?Confirmed ?Type vits no.126-ferrous fum 1 tab PO DAILY 08/10/23 03/29/24 History 28 mg iron-folic acid 800 mcg tablet (Classic ) ferrous gluconate 324 mg (38 mg 324 mg PO DAILY #30 tabs 12/27/23 03/31/24 Rx iron) tablet escitalopram oxalate 20 mg tablet 20 mg PO DAILY Depression 03/31/24 03/31/24 History (Lexapro) ibuprofen 800 mg tablet 800 mg PO Q8H PRN pain #20 tabs 04/01/24 Rx New Prescriptions to Start Prescriptions: Erica Wood Allergies Allergy/AdvReac Type Severity Reaction Status Date / Time No Known Allergies Allergy Verified 03/26/24 08:37 Discharge Plan Disposition Patient Disposition: Home, Self-Care Condition: Good Discharge Order Discharge Orders: Discharge Order (Routine); Ordered 04/01/24 Ordered By: Erica Huitron Follow up Plan Follow up with: Erica Huitron DO [Staff Physician] - 2 weeks Prescriptions/Medication Reconciliation: New ibuprofen 800 mg tablet 800 mg PO Q8H PRN (Reason: pain) Qty: 20 0RF Continued Classic 28 mg iron- 800 mcg tablet 1 tab PO DAILY ferrous gluconate 324 mg (38 mg iron) tablet 324 mg PO DAILY Qty: 30 6RF escitalopram oxalate [Lexapro] 20 mg Tablet 20 mg PO DAILY Problem Reconciliation Problems Reviewed?: Yes Patient Discharge Instructions ACTIVITY: Limited activity DIET: continue same diet and regular diet Additional Instructions: Congratulations! Discharge: 1. Take 800 mg Ibuprofen every 8 hours as needed for pain. You can also take 500-1000 mg of Tylenol in between doses, every 6-8 hours. 2. Nothing in the vagina for 6 weeks - no intercourse, douching or tampons. No tub baths/hot tubs or swimming pools 3. Reasons to return to L&D or call On-Call doctor - fever (greater than 100.4) - heavy vaginal bleeding (soaking through 1 pad in less than 2 hours) - vaginal discharge (malodorous and/or purulent) - severe headaches not resolved by medication or rest and leg tenderness/edema 4. depression/blues - Normal to feel anxious/overwhelmed for first 2 weeks - Talk to your doctor if: severe anxiety, trouble bonding with baby, withdrawing from other family members, thoughts of harming yourself or others Erica Huitron DO [facility] [phone] Print Language: Armenian Providers Primary Care Provider: Ronnie Smith Provider: Brenda Camara Attending Provider: Brenda Camara
[2024-04-01] MEDS: IRON SUCROSE COMPLEX 200 MG in 0.9 % SODIUM CHLORIDE 100 ML 220 MG IV (12:32)
== END 2024-04-01 16:25 | disposition home or self-care (01) | DRG 807 ==
PROVIDERS: Obstetrics & Gynecology; Admitting Provider Obstetrics & Gynecology; PCP Internal Medicine Adolescent Medicine; Visit Provider Obstetrics & Gynecology
DX: O70.1 Second degree perineal laceration during delivery (principal); Z37.0 Single live birth; Z3A.41 41 weeks gestation of pregnancy; Z14.1 Cystic fibrosis carrier; O99.02 Anemia complicating childbirth; D50.8 Other iron deficiency anemias
CPT/HCPCS: 36415; 59025; 76811; 76819; 76820; 80307; 81001; 85007; 85025; 86592; 86850; 87086; 94761; G0283; G0463; J0595; J1756; J3010; J7120